=== PATIENT | female | born 1980 | race Two or more races ===

== ENCOUNTER → 2024-08-14 | Outpatient (CLI) | payer BC, OTHER, SELFPAY ==
--- NOTE | 2024-08-14 10:30 | XR_ITS ---
Examination: Screening digital mammography, bilateral Computer aided detection 3-D breast Tomosynthesis, bilateral Date and time of exam: August 14, 2024 1027 hours compared to mammograms dating to February 14, 2018 Indication: Screening, patient states both breasts feel warm 6 months Technique: Nonmagnified MLO, CC views of the breasts to been obtained, reconstructed from 3-D Tomosynthesis images. R2 computer aided detection program utilized for evaluation of suspicious masses and/or abnormal calcifications. 3-D Tomosynthesis images obtained. Findings: The breasts are heterogeneously dense, which may obscure small masses 12 mm focal asymmetry right breast CC view, nipple level, 4 cm from the nipple Benign calcifications Impression: BI-RADS Category 0: Incomplete: Need additional imaging evaluation 12 mm focal asymmetry right breast CC view, nipple level, recommend spot tomographic CC view, spot tomographic MLO view upper right breast, bilateral breast sonography given the patient's presentation
== END | disposition home or self-care (01) ==
LOC: CDIM 10:16
PROVIDERS: PCP Family Medicine; Referring Provider Family Medicine; Visit Provider Family Medicine
DX: Z12.31 Encounter for screening mammogram for malignant neoplasm of breast (principal); N64.89 Other specified disorders of breast
CPT/HCPCS: 77063; 77067

== ENCOUNTER → 2024-09-15 | Outpatient (CLI) | payer OTHER, SELFPAY ==
--- NOTE | 2024-09-15 09:00 | XR_ITS ---
Examination: Breast ultrasound complete, bilateral Date and time of exam: September 15, 2024 0921 hours INDICATIONS: Right wrist pain beginning one year ago, mammogram August 14, 2024 12 mm focal asymmetry right breast Technique: Real-time grayscale ultrasonographic imaging bilateral breasts, including all 4 quadrants as well as nipple retroareolar and axillary regions. Findings: Sonographic images right breast 9:00 cyst 5 x 4 mm Retroareolar cyst 6 x 7 mm No solid nodules Sonographic images left breast 9:00 oval mass lobular margins 7 x 7 mm 11:00 cyst 11 x 9 mm Multiple additional smaller cysts IMPRESSION: BI-RADS Category 0: Incomplete: Need additional imaging evaluation One additional 6 month left breast sonogram follow-up is needed to document stability of 9:00 nodule left breast described
--- NOTE | 2024-09-15 10:15 | XR_ITS ---
Examination: Diagnostic digital mammography, unilateral, right Computer aided detection 3-D breast Tomosynthesis, unilateral Date and time of exam: September 15, 2024 0939 hours INDICATIONS: Mammogram August 14, 2024 12 mm focal asymmetry right breast CC view, nipple level Technique: Nonmagnified MLO, CC views of the right breast have been obtained, reconstructed from 3-D Tomosynthesis images. R2 computer aided detection program utilized for evaluation of suspicious masses and/or abnormal calcifications. 3-D Tomosynthesis images obtained. Findings: The breast is heterogeneously dense, which may obscure small masses No suspicious solid mass depicted Impression: BI-RADS category 2: Benign findings Return to yearly follow-up mammography
== END | disposition home or self-care (01) ==
PROVIDERS: PCP Family Medicine; Referring Provider Family Medicine; Visit Provider Family Medicine
DX: R92.321 Mammographic fibroglandular density, right breast (principal); N63.25 Unspecified lump in the left breast, overlapping quadrants
CPT/HCPCS: 76641; 77061; 77065; G0279

== ENCOUNTER → 2025-03-16 | Outpatient (CLI) | payer BC, OTHER, SELFPAY ==
--- NOTE | 2025-03-16 12:30 | XR_ITS ---
Examination: Breast ultrasound, unilateral, left complete Date and time of exam: March 16, 2025 1229 hours INDICATIONS: Bilateral breast sonography September 15, 2024 left breast 9:00 nodule 7 x 7 mm Technique: Real-time garcia scale ultrasonographic imaging performed left breast including all 4 quadrants as well as nipple retroareolar and axillary region. Findings: 12:00 cyst 12 x 10 mm 3:00 nodule circumscribed 5 x 7 mm 7:00 cyst 6 x 5 mm 9:00 nodule lobular margins 7 x 6 mm IMPRESSION: BI-RADS Category 3: Probably benign findings. Recommend 1 additional 6 month left breast sonogram follow-up to document stability of breast nodules described above
== END | disposition home or self-care (01) ==
LOC: CDIM 12:10
PROVIDERS: PCP Family Medicine; Referring Provider Family Medicine; Visit Provider Family Medicine
DX: N60.12 Diffuse cystic mastopathy of left breast (principal); N63.25 Unspecified lump in the left breast, overlapping quadrants
CPT/HCPCS: 76641